=== PATIENT | male | born 1970 | race Caucasian/White ===

== ENCOUNTER 2018-04-12 12:24 | Emergency (ER) | payer OTHER ==
[2018-04-12 12:31] VITALS: Ht 182.9 cm
[2018-04-12 13:50] VITALS: BP 128/59
== END 2018-04-12 13:50 | disposition home or self-care (01) ==
LOC: ED 12:24
DX: S81.812A Laceration without foreign body, left lower leg, initial encounter (principal); I83.92 Asymptomatic varicose veins of left lower extremity; X58.XXXA Exposure to other specified factors, initial encounter; Y93.89 Activity, other specified; Y92.89 Other specified places as the place of occurrence of the external cause; Y99.8 Other external cause status
CPT/HCPCS: J2001